=== PATIENT | male | born 1985 | race Caucasian/White ===

== ENCOUNTER → 2021-03-22 | Outpatient (CLI) | payer BC ==
--- NOTE | 2021-03-22 16:39 | XR ---
Lumbosacral spine HISTORY: Chronic low back pain 5 views of lumbosacral spine Lumbar vertebral bodies show preserved height, alignment, and bone mineralization. No evident spondyl olysis. There is mild spondylosis. Some loss of disc height present at L5-S1. Question some postproce dural changes in the right lower quadrant, correlate for surgical history. IMPRESSION: Mild degenerative disc disease. Additional findings above.
--- NOTE | 2021-03-22 16:41 | XR ---
Cervical spine HISTORY: Right-sided neck pain 5 views of the cervical spine Oblique images are suboptimal for evaluation of the foramina on the left. No significant foraminal en croachment on the right. Cervical vertebral bodies show preserved height, bone mineralization. There is minimal retrolisthesis grade 1 C4-5, C5-6. There is spondylosis with loss of disc height at C5-6. C7-T1 is not included on exam. IMPRESSION: Degenerative disc disease.
== END | disposition home or self-care (01) ==
LOC: RADXRMAIN 15:12
PROVIDERS: ATTEND Internal Medicine
DX: M51.36 Other intervertebral disc degeneration, lumbar region (principal)
CPT/HCPCS: 72050; 72110

== ENCOUNTER → 2021-05-03 | Outpatient (CLI) | payer BC ==
--- NOTE | 2021-05-04 02:12 | MR ---
EXAMINATION TYPE: MR lumbar spine wo con DATE OF EXAM: 05/03/2021 COMPARISON: None HISTORY: Low back pain for 15 years that radiates down left and right leg Multiplanar multiecho imaging of the lumbar spine without contrast. Lumbar vertebra have normal alignment. Disc spaces are fairly normal. Posterior elements are intact. The neural foramina are widely patent. Disc spaces appear normal for age. There is no evidence of lum bar disc herniation. There is no lumbar paraspinal mass. Posterior elements are intact. There is deve lopmentally adequate spinal canal. IMPRESSION: Lumbar spine appears fairly normal for age. No lumbar disc herniation or spinal stenosis.
== END | disposition home or self-care (01) ==
LOC: RADMRIMAIN 21:43
PROVIDERS: ATTEND Internal Medicine
DX: M54.16 Radiculopathy, lumbar region (principal)
CPT/HCPCS: 72148